=== PATIENT | female | born 1970 | race Hispanic/Latino ===

== ENCOUNTER → 2023-12-08 | Day surgery (SDC) | payer OTHER ==
[~2023-12-08] MED LIST: ACETAMINOPHEN-1 EAC4 PO; ACETAMINOPHEN325 M1 PO; AMOX TR-K CLV1 EAC2 PO; ASCORBIC ACID500 MG PO; CALCIUM 500 +1 EAC1 PO; COLACE100 M1 PO; DOXYCYCLINE HY100 MG PO; HYDROXYZINE HCL25 MG PO; HYOSCYAMINE SULFATE 0.5 MG/ML INJ ONE; IBUPROFEN200 MG PO; LEXAPRO5 MG PO; LIDOCAINE HCL 2% LOCAL INJ 5 ML SDV VIAL INJ ONE; MELOXICAM7.5 MG PO; MIRALAX17 GM PO; MULTIVITAMINS1 EACH PO; NEURONTIN100 MG PO; ONDANSETRON HCL INJ 2MG/ML 2ML 2 MG/ML VIAL ONE; PROBIOTICS1 EACH PO; PROPOFOL IV EMULSION 10 MG/ML 20 ML VIAL ONE; PROVENTIL HFA6.7 GM INH; ZINC SULFATE50 M1 PO
[2023-12-08] MEDS: ONDANSETRON HCL INJ 2MG/ML 2ML 2 MG/ML VIAL IV ONE (10:15)
[2023-12-08 10:30] VITALS: BP 123/90; PULSE 78; RESP 16; TEMP 97.4; O2SAT 99
== END | disposition home or self-care (01) ==
LOC: OR 08:18
PROVIDERS: ATTEND Internal Medicine Gastroenterology
DX: K29.50 Unspecified chronic gastritis without bleeding (principal); B96.81 Helicobacter pylori [H. pylori] as the cause of diseases classified elsewhere; K63.5 Polyp of colon; K20.90 Esophagitis, unspecified without bleeding; R19.5 Other fecal abnormalities; K59.09 Other constipation; K57.30 Diverticulosis of large intestine without perforation or abscess without bleeding; K64.8 Other hemorrhoids; Z71.3 Dietary counseling and surveillance; J45.909 Unspecified asthma, uncomplicated; M06.9 Rheumatoid arthritis, unspecified; Z01.810 Encounter for preprocedural cardiovascular examination; Z79.1 Long term (current) use of non-steroidal anti-inflammatories (NSAID); Z79.899 Other long term (current) drug therapy; Z68.37 Body mass index [BMI] 37.0-37.9, adult
CPT/HCPCS: 43239; 45385; 93005; C9113; J1980; J2001; J2405; J2704; 45378